=== PATIENT | male | born 1965 | race African-American/Black ===

== ENCOUNTER 2016-08-27 02:09 | Emergency (ER) | payer BC, OTHER, MEDICAID ==
[~2016-08-27] VITALS: Ht 180.3 cm; Wt 104.0 kg
[2016-08-27] MEDS ORDERED: KETOROLAC 60MG/2ML VIAL IM ONE (04:00)
[2016-08-27] MEDS ORDERED: CYCLOBENZAPRINE 10MG TABLET PO ONE (04:00)
[2016-08-27 04:56] VITALS: BP 119/96
== END 2016-08-27 05:13 | disposition home or self-care (01) ==
LOC: ER 02:09
DX: M54.5 Low back pain (principal); F17.200 Nicotine dependence, unspecified, uncomplicated
CPT/HCPCS: 96372; 99283; J1885